=== PATIENT | female | born 1960 | race African-American/Black ===

== ENCOUNTER 2020-02-26 01:34 | Inpatient (IN) | payer OTHER ==
[~2020-02-26] VITALS: Ht 180.3 cm; Wt 118.4 kg
[~2020-02-26 01:34] MED LIST: ACYCLOVIR PO; AMLODIPINE; ELOQUIS PO; FAMO40TA70 PO; METO-539 PO; POTASSIUM; TRIA1TAB5 PO; [UNRECOGNIZED DRUG - REMARK]
[2020-02-26] MEDS ORDERED: MORPHINE SULFATE 4 MG/ML CPJ (NOT FOR IM USE) IV STA (01:47)
[2020-02-26] MEDS ORDERED: ONDANSETRON HCL 4MG/2ML INJ IV STA (01:47)
[2020-02-26] MEDS ORDERED: NITROGLYCERIN OINT 1GM/INCH UDPKT TD ONE (02:00)
[2020-02-26 03:34] LABS: CHLORIDE 105 mEq/L (98-107)
[2020-02-26 03:40] LABS: BASOPHILS % 0.6 % (0.0-2.0); EOSINOPHILS % 1.2 % (0.0-5.0); HEMATOCRIT. 43.2 % (36.0-48.0); LYMPHOCYTES % 32.1 % (20.0-50.0); MEAN CORPUSCULAR HEMOGLOBIN 27.1 pg (28.0-32.0); MEAN CORPUSCULAR VOLUME 83.7 fL (81.0-99.0); MEAN PLATELET VOLUME 7.5 fl (7.4-10.4); MONOCYTES % 7.8 % (2.0-8.0); NEUTROPHILS % 58.3 % (40.0-76.0); PLATELET 181 x1000/uL (130-400); RED BLOOD CELL COUNT 5.16 mill/uL (4.2-5.4); RED CELL DISTRIBUTION WIDTH 14.7 % (11.6-14.6)
[2020-02-26] MEDS ORDERED: ACETAMINOPHEN 325MG TABLET PO ONE (03:45)
[2020-02-26 03:46] LABS: D-DIMER 0.67 mg/L FEU (<0.50); PROTHROMBIN TIME 10.5 sec (9.6-11.0)
[2020-02-26] MEDS ORDERED: DIPHENHYDRAMINE 50MG/ML VIAL IV PRN ×2 (09:30→12:15)
[2020-02-26] MEDS ORDERED: ENOXAPARIN 40MG/0.4ML SYR SUBCUT SCH (09:30)
[2020-02-26] MEDS ORDERED: IPRATROPIUM/ALBUTEROL 0.5-3(2.5)MG/3ML NEB HHN PRN (09:30)
[2020-02-26] MEDS ORDERED: ONDANSETRON HCL 4MG/2ML INJ IV PRN ×2 (09:30→12:15)
[2020-02-26] MEDS ORDERED: MORPHINE SULFATE 2 MG/ML CPJ (NOT FOR IM USE) IV PRN (09:30)
[2020-02-26] MEDS ORDERED: ACETAMINOPHEN 325MG TABLET PO PRN ×2 (09:30→12:15)
[2020-02-26] MEDS: ENOXAPARIN 30MG/0.3ML SYR SUBCUT SCH ×2 (10:00→21:00)
[2020-02-26] MEDS: METOPROLOL TARTRATE 25MG TABLET PO SCH ×2 (11:30→22:15)
[2020-02-26] MEDS ORDERED: REGADENOSON 0.4 MG/5 ML IV NR (11:45)
[2020-02-26] MEDS ORDERED: HYDROCODONE/ACETAMINOPHEN 5/325MG TABLET PO PRN (12:15)
[2020-02-26] MEDS ORDERED: CLONIDINE 0.1MG TABLET PO PRN (12:15)
[2020-02-26] MEDS ORDERED: ACETAMINOPHEN 650MG SUPP PR PRN (12:15)
[2020-02-26] MEDS ORDERED: GUAIFENESIN 200MG/10ML SUGAR FREE UDC PO PRN (12:15)
[2020-02-26] MEDS ORDERED: NA PHOS,M-B/NA PHOS,DI-BA ENEMA 118ML PR PRN (12:15)
[2020-02-26] MEDS ORDERED: IPRATROPIUM/ALBUTEROL 0.5-3(2.5)MG/3ML NEB NEB PRN (12:15)
[2020-02-26] MEDS ORDERED: DOCUSATE SODIUM 100MG CAPSULE PO PRN (12:15)
[2020-02-26] MEDS ORDERED: LORAZEPAM 0.5MG TABLET PO PRN (12:15)
[2020-02-26] MEDS ORDERED: MAGNESIUM/ALUMINUM HYDROXIDE/SIMETHICONE 30ML UDC PO PRN (12:15)
[2020-02-26] MEDS ORDERED: REGADENOSON 0.4 MG/5 ML IV ONE (15:00)
[2020-02-26 16:30] VITALS: BP 167/103
[2020-02-26] MEDS: FUROSEMIDE 40MG/4ML VIAL IVP SCH (18:56)
[2020-02-26 19:48] LABS: CREATINE KINASE 249 IU/L (26-192)
[2020-02-26 20:00] VITALS: BP 171/94
[2020-02-27 00:05] VITALS: BP 163/106
[2020-02-27] MEDS ORDERED: AMLODIPINE 10MG TABLET PO SCH (01:15)
[2020-02-27 04:00] VITALS: BP 159/80
[2020-02-27 08:00] VITALS: BP 149/96
[2020-02-27 08:14] LABS: BASOPHILS % 0.3 % (0.0-2.0); EOSINOPHILS % 1.5 % (0.0-5.0); HEMATOCRIT. 42.9 % (36.0-48.0); HEMOGLOBIN. 14.2 g/dL (12.0-16.0); LYMPHOCYTES % 31.6 % (20.0-50.0); MEAN CORPUSCULAR HEMOGLOBIN 27.8 pg (28.0-32.0); MEAN PLATELET VOLUME 7.7 fl (7.4-10.4); NEUTROPHILS % 57.6 % (40.0-76.0); PLATELET 180 x1000/uL (130-400); RED BLOOD CELL COUNT 5.11 mill/uL (4.2-5.4); RED CELL DISTRIBUTION WIDTH 14.6 % (11.6-14.6)
[2020-02-27 08:25] LABS: CHLORIDE 102 mEq/L (98-107)
[2020-02-27 08:33] LABS: LDL CHOLESTEROL 130 mg/dL (5-100); T4 FREE 1.03 ng/dL (0.76-1.46)
[2020-02-27 08:34] LABS: CREATINE KINASE 272 IU/L (26-192); CREATINE KINASE MB FRACTION 1.3 ng/mL (0.5-3.6); HDL CHOLESTEROL 66 mg/dL (40-59)
[2020-02-27] MEDS: FUROSEMIDE 40MG/4ML VIAL IVP SCH (08:43)
[2020-02-27] MEDS: METOPROLOL TARTRATE 25MG TABLET PO SCH (08:44)
[2020-02-27] MEDS: ENOXAPARIN 30MG/0.3ML SYR SUBCUT SCH (08:44)
[2020-02-27] MEDS ORDERED: ASPIRIN 81MG EC TABLET PO SCH (09:00)
[2020-02-27] MEDS ORDERED: POTASSIUM CHLORIDE 20MEQ TABLET SR PO NR (09:15)
[2020-02-27 12:00] VITALS: BP 104/83
[2020-02-27 13:47] VITALS: BP_SYST 135; BP_SYST 148; BP_SYST 150; BP_DIAS 85; BP_DIAS 90
[2020-02-27 13:49] VITALS: BP 135/85
[2020-02-27 17:56] LABS: CLARITY URINE CLEAR (CLEAR); COLOR URINE YELLOW (YELLOW); KETONES URINE NEGATIVE (NEGATIVE); LEUKOCYTE ESTERASE URINE TRACE (NEGATIVE); NITRITE URINE NEGATIVE (NEGATIVE); OCCULT BLOOD URINE NEGATIVE (NEGATIVE); PH URINE 5.5 (4.5-8.0); PROTEIN URINE 1+ (NEGATIVE); SPECIFIC GRAVITY URINE 1.022 (1.005-1.030)
[2020-02-27 18:09] LABS: *AMPHETAMINES SCREEN URINE NEGATIVE (NEGATIVE); *BARBITURATES SCREEN URINE NEGATIVE (NEGATIVE); *BENZODIAZEPINES SCREEN URINE NEGATIVE (NEGATIVE); *COCAINE SCREEN URINE NEGATIVE (NEGATIVE); CANNABINOID URINE SCREEN NEGATIVE (NEGATIVE)
[2020-02-27 18:10] LABS: METHADONE URINE SCREEN NEGATIVE (NEGATIVE); OPIATES URINE SCREEN NEGATIVE (NEGATIVE); PHENCYCLIDINE URINE SCREEN NEGATIVE (NEGATIVE)
== END 2020-02-27 16:20 | disposition home or self-care (01) | DRG 205 ==
LOC: ER 01:39 → EDBEDREQTM 03:49 → EDBEDREQ 03:49 → 6WST 09:48 → ENRESERV 14:59 → SUPCPDRO 16:18
PROVIDERS: ADMIT Internal Medicine; ATTEND Internal Medicine
DX: M94.0 Chondrocostal junction syndrome [Tietze] (principal); I50.43 Acute on chronic combined systolic (congestive) and diastolic (congestive) heart failure; I11.0 Hypertensive heart disease with heart failure; E78.00 Pure hypercholesterolemia, unspecified; E11.9 Type 2 diabetes mellitus without complications; R07.89 Other chest pain; R26.2 Difficulty in walking, not elsewhere classified; I48.0 Paroxysmal atrial fibrillation; G30.9 Alzheimer's disease, unspecified; E78.5 Hyperlipidemia, unspecified; E88.81 Metabolic syndrome and other insulin resistance; D72.819 Decreased white blood cell count, unspecified; R79.89 Other specified abnormal findings of blood chemistry; R06.03 Acute respiratory distress; D64.9 Anemia, unspecified; I16.0 Hypertensive urgency; M21.371 Foot drop, right foot; M79.89 Other specified soft tissue disorders; F02.80 Dementia in other diseases classified elsewhere, unspecified severity, without behavioral disturbance, psychotic disturbance, mood disturbance, and anxiety; E66.01 Morbid (severe) obesity due to excess calories; Z88.8 Allergy status to other drugs, medicaments and biological substances; Z91.09 Other allergy status, other than to drugs and biological substances; Z85.3 Personal history of malignant neoplasm of breast; Z86.74 Personal history of sudden cardiac arrest; Z86.718 Personal history of other venous thrombosis and embolism; Z95.810 Presence of automatic (implantable) cardiac defibrillator; Z79.01 Long term (current) use of anticoagulants; Z68.36 Body mass index [BMI] 36.0-36.9, adult; Z79.899 Other long term (current) drug therapy
CPT/HCPCS: 36415; 71045; 71275; 72131; 78452; 80053; 80061; 80305; 81003; 82550; 82553; 83880; 84439; 84443; 84484; 85025; 85379; 93005; 93017; 93306; 93970; 97162; 97535; 99285; A9500; J1940; J2270; J2405; J2785

== ENCOUNTER → 2021-07-04 | Outpatient (CLI) | payer MEDICARE, OTHER ==
[~2021-07-04] MED LIST changes: -AMLODIPINE; -POTASSIUM; -[UNRECOGNIZED DRUG - REMARK]
== END | disposition home or self-care (01) ==
LOC: COVVAC 10:17
PROVIDERS: ATTEND Specialist
DX: Z20.822 Contact with and (suspected) exposure to COVID-19 (principal)
CPT/HCPCS: 87426

== ENCOUNTER → 2021-07-04 | Outpatient (CLI) | payer MEDICARE, OTHER ==
[2021-07-04 14:27] LABS: BASOPHILS % 0.5 % (0.0-2.0); CLARITY URINE CLEAR (CLEAR); COLOR URINE YELLOW (YELLOW); EOSINOPHILS % 0.7 % (0.0-5.0); HEMATOCRIT. 48.8 % (36.0-48.0); HEMOGLOBIN. 15.7 g/dL (12.0-16.0); KETONES URINE NEGATIVE (NEGATIVE); LEUKOCYTE ESTERASE URINE NEGATIVE (NEGATIVE); LYMPHOCYTES % 32.4 % (20.0-50.0); MEAN CORPUSCULAR HEMOGLOBIN 26.4 pg (28.0-32.0); MEAN CORPUSCULAR VOLUME 81.9 fL (81.0-99.0); MEAN PLATELET VOLUME 7.2 fl (7.4-10.4); MONOCYTES % 6.7 % (2.0-8.0); NEUTROPHILS % 59.7 % (40.0-76.0); NITRITE URINE NEGATIVE (NEGATIVE); OCCULT BLOOD URINE TRACE (NEGATIVE); PLATELET 229 x1000/uL (130-400); PROTEIN URINE TRACE (NEGATIVE); RED BLOOD CELL COUNT 5.96 mill/uL (4.2-5.4); RED CELL DISTRIBUTION WIDTH 14.7 % (11.6-14.6); SPECIFIC GRAVITY URINE 1.013 (1.005-1.030)
[2021-07-04 14:37] LABS: PARTIAL THROMBOPLASTIN TIME 26.2 sec (23.4-31.0); PROTHROMBIN TIME 10.9 sec (9.6-11.0)
[2021-07-04 14:40] LABS: CHLORIDE 101 mEq/L (98-107)
== END | disposition home or self-care (01) ==
LOC: RAD 13:21
PROVIDERS: ATTEND Internal Medicine
DX: Z01.812 Encounter for preprocedural laboratory examination (principal); N39.0 Urinary tract infection, site not specified; R73.09 Other abnormal glucose; I50.43 Acute on chronic combined systolic (congestive) and diastolic (congestive) heart failure; Z95.810 Presence of automatic (implantable) cardiac defibrillator
CPT/HCPCS: 36415; 71046; 80053; 81003; 83036; 85025

== ENCOUNTER → 2021-07-07 | Day surgery (SDC) | payer MEDICARE, OTHER ==
[~2021-07-07] VITALS: Ht 177.8 cm; Wt 128.4 kg
[~2021-07-07] MED LIST changes: +SODIUM CHLORIDE 0.9% 1,000 ML IV SCH
== END | disposition home or self-care (01) ==
LOC: OR 10:29
PROVIDERS: ATTEND Specialist
DX: N93.9 Abnormal uterine and vaginal bleeding, unspecified (principal); Z53.8 Procedure and treatment not carried out for other reasons; Z87.891 Personal history of nicotine dependence; Z79.899 Other long term (current) drug therapy; Z98.890 Other specified postprocedural states; Z82.49 Family history of ischemic heart disease and other diseases of the circulatory system; Z79.01 Long term (current) use of anticoagulants; Z88.5 Allergy status to narcotic agent; Z88.8 Allergy status to other drugs, medicaments and biological substances
CPT/HCPCS: 82962

== ENCOUNTER → 2023-03-03 | Day surgery (SDC) | payer MEDICARE, OTHER ==
[~2023-03-03] VITALS: Ht 177.8 cm; Wt 122.5 kg
[~2023-03-03] MED LIST changes: +ACYC200C31 PO; -ACYCLOVIR PO; +APIX5TAB PO; +CHOL200026 PO; +CLON1PAT12 TD; -ELOQUIS PO; +FENTANYL CITRATE/PF 50MCG/ML 2ML VIAL ONE; +FURO-151 PO; +HYDROMORPHONE HCL/PF 2MG/ML CPJ IV PRN; +LABETALOL 5MG/ML SYR 20 MG/4 ML SYRINGE IV PRN; +LACTATED RINGERS 1,000 ML IV SCH; +LIDOCAINE HCL 1% 10 MG/ML 10ML VIAL ONE; +MEPERIDINE HCL/PF 25MG/ML CPJ IV PRN; +METF-414 MT; -METO-539 PO; +MIDAZOLAM HCL 2 MG/2 ML VIAL ONE; +ONDANSETRON HCL 4MG/2ML INJ IV PRN; +POTA-354 PO; +PROPOFOL 200MG/20ML VIAL IV ONE; -TRIA1TAB5 PO; +TRIA1TAB92 MT
== END | disposition home or self-care (01) ==
LOC: OR 08:50
PROVIDERS: ATTEND Obstetrics & Gynecology Obstetrics
DX: N95.0 Postmenopausal bleeding (principal); N84.0 Polyp of corpus uteri; I10 Essential (primary) hypertension; I25.10 Atherosclerotic heart disease of native coronary artery without angina pectoris; M19.90 Unspecified osteoarthritis, unspecified site; I48.91 Unspecified atrial fibrillation; E11.9 Type 2 diabetes mellitus without complications; E78.00 Pure hypercholesterolemia, unspecified; G47.30 Sleep apnea, unspecified; Z79.899 Other long term (current) drug therapy; Z79.84 Long term (current) use of oral hypoglycemic drugs; Z88.8 Allergy status to other drugs, medicaments and biological substances; Z98.890 Other specified postprocedural states
CPT/HCPCS: 82962; 88305; 58558; J3010; J3490; J2250; J2704; A4217 ×3; Z7610 ×14